=== PATIENT | male | born 2005 | race Caucasian/White ===

== ENCOUNTER 2025-04-14 08:15 | Emergency (ER) | payer SELFPAY ==
[~2025-04-14] VITALS: Ht 177.8 cm; Wt 54.4 kg
[~2025-04-14 08:15] MED LIST: AMOXICILLI400 MG/51 PO; AMOXIL400 MG/5 M PO; CLARITIN10 MG PO; CLARITIN5 MG/5 ML PO; NKHM; Nizoral 2%15 GM PO; OMNICEF250 MG/5 M PO; PREDNISONE10 MG PO; PRELONE5 MG/5 ML PO; TYLENOL; ZOFRAN2 MG/ML PO
[2025-04-14] MEDS ORDERED: Metoclopramide Hydrochloride 10 MG/2 ML VIAL IV ONE (08:35)
[2025-04-14] MEDS ORDERED: SODIUM CHLORIDE 0.9% 1,000 ML IV ONE (08:35)
[2025-04-14] MEDS ORDERED: diphenhydrAMINE hydrochloride 50 MG/ML VIAL IV ONE (08:35)
[2025-04-14 08:46] LABS: BASO # 0.0 10*3/uL (0.0-0.1); BASO % 0.3 % (0.0-1.0); EOS # 0.1 10*3/uL (0.0-0.4); EOS % 1.1 % (1.0-4.0); MEAN CELL VOLUME 85.4 fl (80.0-94.0); MEAN CORPUSCULAR HGB 28.5 pg (27.0-31.0); MEAN PLATELET VOLUME 9.7 fl (9.6-12.3); MONO # 0.5 10*3/uL (0.1-1.0); MONO % 5.3 % (3.0-9.0); NEUT # 7.0 10*3/uL (2.3-7.9); NEUT % 77.7 % (47.0-73.0); NUCLEATED RED BLOOD CELL 0.0 % (0.0-0.0); NUCLEATED RED BLOOD CELL 0.0 10*3/uL (0.0-0.0); PLATELET COUNT AUTOMATED 251 10*3/uL (130-400); RED CELL DISTRI WIDTH 13.1 % (0-14.5)
[2025-04-14 09:21] LABS: BUN 15 mg/dl (9-23)
[2025-04-14] MEDS ORDERED: IBU800 M2 PO (09:44)
[2025-04-14] MEDS ORDERED: REGLAN10 M1 PO (09:44)
[2025-04-14] MEDS ORDERED: CLONIDINE HCL0.1 MG PO (09:44)
== END 2025-04-14 10:35 | disposition home or self-care (01) ==
LOC: ED 08:15
PROVIDERS: Emergency Medicine
DX: F11.23 Opioid dependence with withdrawal (principal); R10.9 Unspecified abdominal pain